=== PATIENT | female | born 1975 | race Two or more races ===

== ENCOUNTER 2019-02-16 22:40 | Inpatient (IN) | payer MEDICAID ==
[~2019-02-16] VITALS: Ht 165.1 cm; Wt 127.0 kg
[2019-02-16] MEDS ORDERED: LACTATED RINGER'S 1,000 ML IV SCH (22:49)
[2019-02-16] MEDS ORDERED: LACT. RINGERS/OXYTOCIN 20UNITS 1,000 ML IV ONE (22:49)
[2019-02-16] MEDS ORDERED: LIDOCAINE 2%HCL (LOCAL ANESTH.) INJ 20ML MDV ONE (22:49)
[2019-02-16] MEDS ORDERED: LACT. RINGERS/OXYTOCIN 20UNITS 1,000 ML IV SCH (22:49)
[2019-02-16] MEDS ORDERED: LIDOCAINE 2%HCL (LOCAL ANESTH.) INJ 20ML MDV IJ ONE (23:00)
[2019-02-16] MEDS ORDERED: CARBOPROST TROMETHAMINE 250 MCG/1ML VIAL IM PRN (23:00)
[2019-02-16] MEDS ORDERED: PENICILLIN G POT 5MIL/D5 50ML 50 ML IV ONE (23:00)
[2019-02-16] MEDS ORDERED: METHYLERGONOVINE MALEATE 0.2 MG/ML AMP IM PRN (23:00)
[2019-02-16] MEDS ORDERED: DERMOPLAST 60ML BOTTLE TOP PRN (23:00)
[2019-02-16] MEDS ORDERED: WITCH HAZEL-GLYCERIN PAD TOP PRN (23:00)
[2019-02-16] MEDS ORDERED: PHISODERM TOP SOLN 240ML BTL TOP PRN (23:00)
[2019-02-16 23:40] LABS: Basophils # (auto) 0 uL; Eosinophils # (auto) 0 uL; Eosinophils % (auto) 0.2 % (0.0-7.0); Hemoglobin 11.5 g/dL (12.2-16.2); Red Blood Cells 4.27 10^6/uL (4.0-5.20)
[2019-02-16 23:41] LABS: Basophils % (auto) 0.2 % (0.0-2.0); Hematocrit 34.8 % (36.0-46.0); Lymphocytes # (auto) 2.5 uL; Lymphocytes % (auto) 15.1 % (10.0-50.0); Mean Corpuscular Hemoglobin 26.9 pg (28.0-32.0); Mean Corpuscular Volume 81.4 fL (80.0-100.0); Monocytes % (auto) 6.2 % (0.0-12.0); Neutrophils # (auto) 13.1 uL; Neutrophils % (auto) 78.3 % (37.0-80.0); Platelet Count (auto) 171 10^3/uL (140-450); Red Cell Distribution Width 16.2 % (11.8-14.3); White Blood Cell 16.8 10^3/uL (4.4-10.8)
[2019-02-16 23:58] LABS: Albumin 2.5 g/dL (3.4-5.0); Calcium 8.5 mg/dL (8.5-10.1); Potassium 3.1 mmol/L (3.5-5.1)
[2019-02-17] LABS: BUN/Creatinine Ratio 8.3
[2019-02-17] MEDS ORDERED: IBUPROFEN 600 MG TAB PO PRN
[2019-02-17 00:03] LABS: Bilirubin, Total 0.3 mg/dL (0.2-1.0); Total Protein 7.3 g/dL (6.4-8.2)
[2019-02-17 00:22] LABS: INR 0.93 (0.9-1.15); Partial Thromboplastin Time 26.7 sec (23.64-32.05)
[2019-02-17] MEDS ORDERED: LACT. RINGERS/OXYTOCIN 20UNITS 1,000 ML IV SCH (00:55)
--- NOTE | 2019-02-17 01:50 | NUR ---
Ambulation: Patient OOB with standby assistance by RN. Patient ambulated to bathroom with steady gait. Patient able to void 400 ml without difficulty. [facility] teaching provided with returned demonstration by patient. Clean gown provided and bed linen changed. Patient ambulated back to bed with steady gait and no distress noted.
--- NOTE | 2019-02-17 02:35 | NUR ---
Pt calls. States she would like "something to help" her "sleep and relax." Call placed to Katie Lutz CNM. Order received for Benadryl 50mg PO QHS prn sleeplessness.
[2019-02-17] MEDS ORDERED: diphenhdrAMINE HCL 25 MG CAP PO PRN (02:45)
[2019-02-17 03:01] VITALS: BP 115/61
[2019-02-17] MEDS ORDERED: POTASSIUM CHL 20 Meq TABLET PO ONE (04:00)
[2019-02-17] MEDS ORDERED: POTASSIUM CHL 20 Meq TABLET PO SCH (04:00)
[2019-02-17 07:30] VITALS: BP 117/76
--- NOTE | 2019-02-17 08:00 | NUR ---
DR. HERRERA ON UNIT, STATUS UPDATE GIVEN, ALL LABS REVIEWED. ORDERS RECEIVED FORM DR. HERRERA TO GIVE THE KLOR CON 40MEQ ONCE AND NO NEED FOR POTASSIUM RE-DRAW. READ BACK AND VERIFIED ORDERS. WILL CARRY OUT.
--- NOTE | 2019-02-17 10:00 | NUR ---
MEDICAL CLERK MAINE FROM MEDICAL CLERK IN PATIENT ROOM TALKING WITH HER.
--- NOTE | 2019-02-17 10:13 | NUR ---
BEE BREEDER OLESYA FROM [facility] [facility] STATED THAT PT WOULD NOT LIKE TO SPEAK WITH A [employer] OR PICK OUT A MORTUARY AT THIS TIME, SHE WANTS TO "WAIT UNTIL HER BABY IS GONE" TO CHOOSE ONE. OLESYA STATED THAT SHE WILL GIVEN THE [facility] INFORMATION AND CONTACT NUMBER WELL HAS HER AND [place]ASIA'S EXTENSIONS IN CASE SHE WANTS TO TALK AT A LATER TIME. WILL CONTINUE TO MONITOR.
[2019-02-17 11:00] VITALS: BP 102/46
--- NOTE | 2019-02-17 13:52 | NUR ---
Pt is an alert and oriented female that has a social service consult for a demise. Pt is and resides with her spouse and 2 teenage sons. Pt verbalizes awareness that she was but expresses very little support for loss. Pt states she has no other family , only a female friend matty t is supportive. Pt also states shes had no other losses/grief experience prior to this. Provided emotional support and education regarding grieving process. Encouraged pt to contact [facility] social media editor department for questions/support. Additionally referred pt to [facility] psychiatry [facility] and [facility] dept. Pt has transport home upon discharge and verbalized understanding and agreeance with above information. Addendum: 02/17/19 at 1353 by MICHELINE RAMIREZ Amended: Links added.
--- NOTE | 2019-02-17 14:50 | NUR ---
Spoke with FOSourav via telephone and discussed mortuary options and gave him names and phone numbers of local mortuaries
[2019-02-17 15:16] VITALS: BP 110/61
--- NOTE | 2019-02-17 17:20 | NUR ---
Spoke with PT regarding mortuary options and that when she is ready we will take baby to morgue. PT states that she is not ready to have baby leave the room at this time but will let us know when she is ready
--- NOTE | 2019-02-17 18:30 | NUR ---
Opening Shift Note Received report from HUMBERTO Biggs and assumed care of patient, awake and alert. No S/S of distress/SOB or pain. Visitor at the bedside. Instructed patient and to call for assist if needed and patient verbalized understanding. Will continue to monitor .
[2019-02-17 19:00] VITALS: BP 117/55
[2019-02-17] MEDS ORDERED: diphenhdrAMINE HCL 25 MG CAP PO ONE (21:00)
--- NOTE | 2019-02-17 22:00 | NUR ---
IV removal Patient c/o pain at the IV site . IV at L wrist dc'd with sterile technique, catheter fully intact. Pressure dressing applied to site. Patient tolerated well.
[2019-02-17 23:00] VITALS: BP 114/62
[2019-02-18 03:00] VITALS: BP 100/61
[2019-02-18 05:07] LABS: RPR Non Reactive (Non Reactive)
[2019-02-18] MEDS ORDERED: NORPTMEDS (05:56)
[2019-02-18 06:45] VITALS: BP 123/56
[2019-02-18 11:00] VITALS: BP 134/78
[2019-02-18 13:20] LABS: Urine Bacteria NONE SEEN /hpf (None Seen); Urine Blood 2+ /uL (Negative); Urine Specific Gravity 1.012 (1.001-1.035); Urine WBC 8 /hpf (0 - 5)
[2019-02-18 13:36] LABS: Alcohol, Urine < 3.0 mg/dL (0-5); Amphetamine Screen, Urine NEGATIVE (NEGATIVE); Barbiturate Scree,Urine NEGATIVE (NEGATIVE); Benzodiazephine Screen, Urine NEGATIVE (NEGATIVE); Cannabinoid Screen, Urine NEGATIVE (NEGATIVE); Cocaine Screen, Urine NEGATIVE (NEGATIVE); Opiate Scree,Urine NEGATIVE (NEGATIVE); Phencyclidine Screen, Urine NEGATIVE (NEGATIVE)
--- NOTE | 2019-02-18 14:20 | NUR ---
Telepsych consult done by Dr. Garcia. Dr. Garcia evaluates pt via telepsych. Pt verbalizes no suicidal ideation or thoughts of self harm, verbalizes she has an adequate support system. Pt denies desire for medications or additional treatment for emotional distress. Denies any emotional distress at this time. Per Dr. Garcia pt is cleared for discharge at this time.
[2019-02-18 15:00] VITALS: BP 118/65
--- NOTE | 2019-02-18 15:30 | NUR ---
Discharge: Discharge instructions given as ordered. Pt encouraged to follow up with [facility] as instructed. All questions and concerns addressed. Patient verbalized understanding. Medication reconciliation completed and copy given to patient. All required/requested vaccines given and copies of vaccinations given to patient. Patient encouraged to prepare to depart unit.
[2019-02-18 15:44] VITALS: BP 118/65
--- NOTE | 2019-02-18 15:44 | NUR ---
Discharge: Patient taken to vehicle via wheelchair with all personal belongings, accompanied by staff and family member. No distress noted at time of departure, no adverse changes in status since initial assessment.
== END 2019-02-18 15:44 | disposition home or self-care (01) | DRG 560 ==
LOC: LDRP 22:40 → OBSVTOIN 22:40
PROVIDERS: ADMIT Obstetrics & Gynecology; ATTEND Obstetrics & Gynecology
PROC: 10E0XZZ Delivery of Products of Conception, External Approach (ICD-10-PCS; principal; 2019-02-16)
DX: O60.12X0 Preterm labor second trimester with preterm delivery second trimester, not applicable or unspecified (principal); Z37.1 Single stillbirth; Z3A.21 21 weeks gestation of pregnancy
CPT/HCPCS: 36415; 59025; 59409; 76805; 80053; 80307; 81001; 83036; 84112; 84443; 85025; 85610; 85730; 86592; 86703; 86762; 86850; 86900; 86901; 87340; 96361; 96366; G0378; J2590

== ENCOUNTER 2019-02-16 23:21 | Emergency (ER) | payer MEDICAID ==
[~2019-02-16] VITALS: Ht 160 cm; Wt 124.7 kg
[2019-02-16 23:44] VITALS: BP 145/89
[2019-02-18] MEDS ORDERED: NORPTMEDS (05:56)
== END 2019-02-17 02:41 | disposition still patient (30) ==
LOC: ER 23:23
DX: O46.92 Antepartum hemorrhage, unspecified, second trimester (principal); R10.9 Unspecified abdominal pain; Z3A.22 22 weeks gestation of pregnancy